=== PATIENT | male | born 1995 | race Caucasian/White ===

== ENCOUNTER 2021-11-12 04:03 | Emergency (ER) | payer OTHER ==
[2021-11-12 04:55] LABS: RAPID STREP SCREEN Negative (Negative)
[2021-11-12] MEDS ORDERED: SODIUM CHLORIDE 0.9% 1,000 ML IV STA (05:03)
[2021-11-12] MEDS ORDERED: KETOROLAC 15 MG/ML VIAL IVP STA (05:03)
[2021-11-12] MEDS ORDERED: DEXAMETHASONE 10 MG/ML VIAL IVP STA (05:04)
[2021-11-12 05:24] LABS: BASOPHILS % (AUTO) 0.3 %; HCT - HEMATOCRIT 38.8 % (42.0-52.0); HGB - HEMOGLOBIN 13.6 g/dL (14.0-18.0); LYMPHOCYTES # (AUTO) 0.4 10^3/uL (1.5-3.5); LYMPHOCYTES % (AUTO) 10.8 %; MEAN CORPUSCULAR HEMOGLOBIN 30.2 pg (27.0-31.0); MEAN CORPUSCULAR HGB CONC 35.1 g/dL (32.0-36.0); MEAN CORPUSCULAR VOLUME 86.2 fL (80.0-94.0); MEAN PLATELET VOLUME 10.1 fL (7.4-11.4); MONOCYTES # (AUTO) 0.3 10^3/uL (0.0-1.0); MONOCYTES % (AUTO) 7.5 %; NEUTROPHILS # (AUTO) 2.7 10^3/uL (1.5-6.6); NEUTROPHILS % (AUTO) 81.1 %; PLT - PLATELET COUNT 162 10^3/uL (130-450); RED CELL DISTRIBUTION WIDTH 11.9 % (12.0-15.0); WHITE BLOOD COUNT 3.3 x10^3/uL (4.8-10.8)
[2021-11-12 05:36] LABS: ALBUMIN 4.5 g/dL (3.2-5.5); ALBUMIN/GLOBULIN RATIO 1.5 (1.0-2.2); BILIRUBIN,TOTAL 1.5 mg/dL (0.2-1.0); CALCIUM 9.3 mg/dL (8.5-10.3); POTASSIUM 4.3 mmol/L (3.5-5.0); TOTAL PROTEIN 7.6 g/dL (6.7-8.2)
[2021-11-12 05:37] LABS: CORONAVIRUS 229E-RESP PCR NOT DETECTED; CORONAVIRUS HKU1-RESP PCR NOT DETECTED; CORONAVIRUS NL63-RESP PCR NOT DETECTED; CORONAVIRUS OC43-RESP PCR NOT DETECTED
[2021-11-12 05:38] LABS: B. PARAPERTUSSIS- RESP PCR PAN NOT DETECTED; B. PERTUSSIS- RESP PCR PANEL NOT DETECTED; C. PNEUMONIAE- RESP PCR PANEL NOT DETECTED; HUMAN METAPNEUMOVIRUS NOT DETECTED; INFLUENZA A- RESP PCR PANEL NOT DETECTED; INFLUENZA B - RESP PCR PANEL NOT DETECTED; M. PNEUMONIAE- RESP PCR PANEL NOT DETECTED; PARAINFLUENZA VIRUS 1 NOT DETECTED; PARAINFLUENZA VIRUS 2 NOT DETECTED; PARAINFLUENZA VIRUS 3 NOT DETECTED; PARAINFLUENZA VIRUS 4 NOT DETECTED; RHINOVIRUS/ENTEROVIRUS NOT DETECTED; RSV- RESP PCR PANEL NOT DETECTED; SARS-CoV-2 -RESP PCR PANEL DETECTED
--- NOTE | 2021-11-12 06:16 | ED Physician Documentation ---
PD HPI BACK PAIN - Stated complaint Stated Complaint: LOWER BACK PX/HIGH TEMP - Chief complaint Chief Complaint: General - History obtained from History obtained from: Patient - History of Present Illness Timing - onset: How many days ago (2) Timing - duration: Days (2) Timing - details: Gradual onset, Still present Location: Lower Quality: Pain, Spasm, Sharp, Similar to prior episodes Associated symptoms: Fever Improves with: Rest Worsened by: Movement, Lifting, Twisting Contributing factors: Other (working out at the GYM) Similar symptoms before: Diagnosis (lumbar strain) Recently seen: Not recently seen - Additional information Additional information: Previously well 26-year-old male has developed some back pain which he believes is related to working out at the gym. He has worsening of this back pain that he is usually expected and he is now developed a fever. He does have some nasal congestion and a slight cough associated with it. He is immunized against COVID. Review of Systems Constitutional: reports: Fever, Myalgias, Fatigue Ears: denies: Ear pain Nose: reports: Congestion Throat: reports: Sore throat Cardiac: denies: Chest pain / pressure, Palpitations Respiratory: reports: Cough. denies: Dyspnea GI: denies: Vomiting, Diarrhea : denies: Dysuria PD PAST MEDICAL HISTORY - Past Medical History Past Medical History: Yes Psych: Depression - Past Surgical History Past Surgical History: Yes HEENT: Tonsil/Adenoidectomy - Present Medications Home Medications: Ambulatory Orders Medication Instructions Recorded Confirmed No Known Home Medications 11/12/21 11/12/21 - Allergies Allergies/Adverse Reactions: Allergies Allergy/AdvReac Type Severity Reaction Status Date / Time No Known Drug Allergies Allergy Verified 11/12/21 04:16 - Social History Does the pt smoke?: No Smoking Status: Never smoker Does the pt drink ETOH?: Yes Does the pt have substance abuse?: No - Immunizations Immunizations are current?: Yes PD ED PE NORMAL - Vitals Vital signs reviewed: Yes (Hypertensive and febrile) - General General: Alert and oriented X 3, No acute distress, Well developed/nourished, Other (The patient is warm to the touch.) - HEENT HEENT: Atraumatic, PERRL, EOMI, Ears normal, Other (There is erythema to the posterior pharynx which is mild and present) - Neck Neck: Supple, no meningeal sign, No bony TTP - Cardiac Cardiac: RRR, No murmur - Respiratory Respiratory: No respiratory distress, Clear bilaterally - Abdomen Abdomen: Normal bowel sounds, Soft, Non tender, Non distended, No organomegaly - Back Back: No CVA TTP, Other (There is point tenderness to the paraspinous and spine of the lower lumbar area.) - Derm Derm: Normal color, Warm and dry, No rash - Extremities Extremities: No deformity, No edema - Neuro Neuro: Alert and oriented X 3, outside physical damage appraiser 2-12 intact, No motor deficit, No sensory def icit, Normal speech Eye Opening: Spontaneous Motor: Obeys Commands Verbal: Oriented GCS Score: 15 - Psych Psych: Normal mood, Normal affect Results - Vitals Vitals: Vital Signs - 24 hr 11/12/21 11/12/21 04:12 06:31 Temperature 39.1 C H 100.8 C H Heart Rate 99 58 L Respiratory 18 18 Rate Blood Pressure 114/83 H 120/64 O2 Saturation 99 99 Oxygen O2 Source Room air - Labs Labs: Laboratory Tests 11/12/21 11/12/21 11/12/21 04:25 04:25 04:35 WBC RBC Hgb Hct MCV MCH MCHC RDW Plt Count MPV Neut # (Auto) Lymph # (Auto) [place] # (Auto) Eos # (Auto) Baso # (Auto) Absolute Nucleated RBC Nucleated RBC % Sodium 137 Potassium 4.3 Chloride 102 Carbon Dioxide 24 Anion Gap 11.0 BUN 12 Creatinine 1.0 Estimated GFR (MDRD) 90 Glucose 103 H Lactic Acid Calcium 9.3 Total Bilirubin 1.5 H AST 61 H ALT 56 Alkaline Phosphatase 56 Total Protein 7.6 Albumin 4.5 Globulin 3.1 Albumin/Globulin Ratio 1.5 Lipase 32 Nasal Adenovirus (PCR) NOT DETECTED Nasal B. parapertussis DNA (PCR) NOT DETECTED Nasal Coronavir 229E PCR NOT DETECTED Nasal Coronavir HKU1 PCR NOT DETECTED Nasal Coronavir NL63 PCR NOT DETECTED Nasal Coronavir OC43 PCR NOT DETECTED Nasal Enterovir/Rhinovir PCR NOT DETECTED Nasal Influenza B PCR NOT DETECTED Nasal Influenza A PCR NOT DETECTED Nasal Parainfluen 1 PCR NOT DETECTED Nasal Parainfluen 2 PCR NOT DETECTED Nasal Parainfluen 3 PCR NOT DETECTED Nasal Parainfluen 4 PCR NOT DETECTED Nasal RSV (PCR) NOT DETECTED Nasal B.pertussis DNA PCR NOT DETECTED Nasal C.pneumoniae (PCR) NOT DETECTED [place] Human Metapneumo PCR NOT DETECTED Nasal M.pneumoniae (PCR) NOT DETECTED Nasal SARS-CoV-2 (PCR) DETECTED A Group A Strep Rapid Negative 11/12/21 11/12/21 05:15 05:15 WBC 3.3 L RBC 4.50 L Hgb 13.6 L Hct 38.8 L MCV 86.2 MCH 30.2 MCHC 35.1 RDW 11.9 L Plt Count 162 MPV 10.1 Neut # (Auto) 2.7 Lymph # (Auto) 0.4 L [place] # (Auto) 0.3 Eos # (Auto) 0.0 Baso # (Auto) 0.0 Absolute Nucleated RBC 0.00 Nucleated RBC % 0.0 Sodium Potassium Chloride Carbon Dioxide Anion Gap BUN Creatinine Estimated GFR (MDRD) Glucose Lactic Acid 0.8 Calcium Total Bilirubin AST ALT Alkaline Phosphatase Total Protein Albumin Globulin Albumin/Globulin Ratio Lipase Nasal Adenovirus (PCR) Nasal B. parapertussis DNA (PCR) Nasal Coronavir 229E PCR Nasal Coronavir HKU1 PCR Nasal Coronavir NL63 PCR Nasal Coronavir OC43 PCR Nasal Enterovir/Rhinovir PCR Nasal Influenza B PCR Nasal Influenza A PCR Nasal Parainfluen 1 PCR Nasal Parainfluen 2 PCR Nasal Parainfluen 3 PCR Nasal Parainfluen 4 PCR Nasal RSV (PCR) Nasal B.pertussis DNA PCR Nasal C.pneumoniae (PCR) [place] Human Metapneumo PCR Nasal M.pneumoniae (PCR) Nasal SARS-CoV-2 (PCR) Group A Strep Rapid - Rads (name of study) chest Radiology: Prelim report reviewed (Impression: 1. No acute cardiopulmonary process.), EMP read indepedently, See rad report PD MEDICAL DECISION MAKING - ED course Complexity details: reviewed results, re-evaluated patient, considered differential, d/w patient ED course: 26-year-old male with acute back pain has improvement in his back pain with the use of dexamethasone and Toradol. As he arrives to the emergency department he is noted to be febrile and he appears to have aches everywhere. The suspicion is for COVID. A COVID swab is positive. He was initially offered Paxlovid but this was not available as the pharmacy is not currently here. Departure - Departure Disposition: 01 Home, Self Care Clinical Impression: COVID Acute lumbar myofascial strain Qualifiers: Encounter type: initial encounter Qualified Code(s): S39.012A - Strain of muscle, fascia and tendon of lower back, initial encounter Condition: Stable Instructions: ED Sprain Strain Lumbar, COVID-19 [facility], Flu and Cold: Nutrition, Prevention and Treatment Tips Follow-Up: D[facility] Snellshirley Matt [Provider Group] Comments: Alex, today it looks like you have COVID. The most important thing with COVID is to be certain that you stay well-hydrated. Especially treat the fever with Tylenol and take additional fluids.Tylenol and Advil for the back pain and for the COVID.
[2021-11-12 06:33] VITALS: BP 120/64
--- NOTE | 2021-11-12 08:40 | XRAY Report ---
PROCEDURE: Chest 1 View X-Ray INDICATIONS: chest pain TECHNIQUE: One view of the chest was acquired. COMPARISON: None FINDINGS: Surgical changes and devices: None. Lungs and pleura: No pleural effusions or pneumothorax. Lungs are clear. Mediastinum: Mediastinal contours appear normal. Heart size is normal. Bones and chest wall: No suspicious bony lesions. Overlying soft tissues appear unremarkable. IMPRESSION: No acute pulmonary process. The above findings are concordant with preliminary report. Reviewed by: Kym Stallings MD on 11/12/2021 8:39 AM PDT Approved by: Kym Stallings MD on 11/12/2021 8:39 AM PDT Station ID: [id number]
== END 2021-11-12 06:31 | disposition home or self-care (01) ==
LOC: ED 04:03
DX: U07.1 COVID-19 (principal); S39.012A Strain of muscle, fascia and tendon of lower back, initial encounter; X58.XXXA Exposure to other specified factors, initial encounter; Y93.B9 Activity, other involving muscle strengthening exercises
CPT/HCPCS: 36415; 80053; 83605; 83690; 85025; 87040; 87070; 87077; 87150; 87181; 87430; 87633; 96374; 96375; 99282

== ENCOUNTER 2021-11-13 14:49 | Emergency (ER) | payer OTHER ==
[2021-11-13 14:56] VITALS: BP 115/69
--- NOTE | 2021-11-13 15:22 | ED Physician Documentation ---
History of Present Illness - Stated complaint Stated Complaint: ABNORMAL LABS - Chief complaint Chief Complaint: General - Additonal information Additional information: 26-year-old male was called to return to the ER for abnormal blood cultures. Seen by my colleague Dr. Kwong yesterday for acute low back pain and fevers. No falls or trauma. He was ultimately found to be COVID-19 positive. Due to the volume of the fever blood cultures were obtained and subsequently have grown coag negative staph species. This was in 1 of 2 sets obtained from the left arm During yesterday's work-up he was found to have white blood cell count of 3.3. His electrolytes were otherwise unremarkable. Chest x-ray without acute focal findings. Since being discharged yesterday he has taken Tylenol and ibuprofen and reports that his symptoms are markedly better. The back pain is resolving. He has no saddle anesthesia, bowel or bladder incontinence. No history of injection drug use. He is otherwise been healthy up to this point in his life. Review of Systems Constitutional: reports: Fever Eyes: reports: Loss of vision Nose: reports: Reviewed and negative Throat: reports: Reviewed and negative Cardiac: reports: Reviewed and negative Respiratory: reports: Reviewed and negative GI: reports: Reviewed and negative : reports: Reviewed and negative Skin: denies: Rash Musculoskeletal: reports: Back pain Neurologic: reports: Reviewed and negative Psychiatric: reports: Reviewed and negative Endocrine: reports: Reviewed and negative Immunocompromised: denies: Immunocompromised, HIV/AIDS, Asplenic, Chemotherapy, Transplant PD PAST MEDICAL HISTORY - Past Medical History Psych: Depression - Past Surgical History Past Surgical History: Yes HEENT: Tonsil/Adenoidectomy - Present Medications Home Medications: Ambulatory Orders Medication Instructions Recorded Confirmed No Known Home Medications 11/12/21 11/12/21 - Allergies Allergies/Adverse Reactions: Allergies Allergy/AdvReac Type Severity Reaction Status Date / Time No Known Drug Allergies Allergy Verified 11/12/21 04:16 - Social History Does the pt smoke?: No Smoking Status: Never smoker Does the pt drink ETOH?: Yes Does the pt have substance abuse?: No - Immunizations Immunizations are current?: Yes PD ED PE NORMAL - General General: Alert and oriented X 3, No acute distress, Well developed/nourished - HEENT HEENT: Atraumatic, Pharynx benign - Neck Neck: Supple, no meningeal sign, No JVD - Cardiac Cardiac: RRR, No murmur - Respiratory Respiratory: No respiratory distress - Abdomen Abdomen: Normal bowel sounds, Soft - Back Back: No CVA TTP, No spinal TTP, Other (no low back or spinous process pain elicited) - Derm Derm: Normal color, Warm and dry - Extremities Extremities: No deformity, No tenderness to palpate, Normal ROM s pain - Neuro Neuro: Alert and oriented X 3, recovery agent 2-12 intact Eye Opening: Spontaneous Motor: Obeys Commands Verbal: Oriented GCS Score: 15 - Psych Psych: Normal mood Results - Vitals Vitals: Vital Signs - 24 hr 11/13/21 14:53 Temperature 36.6 C Heart Rate 60 Respiratory 16 Rate Blood Pressure 115/69 O2 Saturation 99 Oxygen O2 Source Room air PD MEDICAL DECISION MAKING - ED course Complexity details: reviewed old records, reviewed results, re-evaluated patient, considered differential, d/w patient ED course: 26-year-old male was called to return to the ER for evaluation of positive blood cultures obtained yesterday. He was seen by my colleague for fever and acute low back pain. Ultimately was found to be COVID-19 positive. One of the 2 sets resulted positive for coag negative staph. The set was taken from the left arm. Since being discharged yesterday he reports marked improvement in his symptoms. No further fevers. His back pain is nearly fully resolved. He is having no chest pain, cough shortness of air or abdominal pain or urinary symptoms. His clinical exam and vital signs today are unremarkable The cultures from yesterday grew a coag negative staph, this likely represents a contamination. Given his improvement in symptoms we will simply repeat the blood cultures today. Patient will be discharged home. If the cultures obtained today are positive then he will certainly need to return for repeat evaluation and at that time consideration of antibiotics for possible bacteremia though at this time I suspect yesterday's cultures are simply contaminant. Departure - Departure Disposition: 01 Home, Self Care Clinical Impression: Abnormal blood finding Condition: Stable Record reviewed to determine appropriate education?: Yes Comments: Alex You were asked today to return to the emergency department for evaluation of abnormal blood cultures. When you were seen yesterday for fever and low back pain you were found to have COVID-19 infection. However, one of the two sets of blood cultures, the one taken from your left arm, grew coag negative staph aureus. When this occurs, most often it is a contamination. However it is always advised to have your blood cultures repeated, which we have done today. If your cultures today are positive then you will be notified and you will need to return to the emergency department for likely hospitalization and further evaluation. I do recommend that you continue to stay well-hydrated, continue to take the Tylenol or ibuprofen. If at any point you find that your symptoms worsen, you have a return of fevers, any difficult or labored breathing then you are to return immediately to the emergency department.
== END 2021-11-13 15:47 | disposition home or self-care (01) ==
LOC: ED 14:49
DX: R89.5 Abnormal microbiological findings in specimens from other organs, systems and tissues (principal); U07.1 COVID-19
CPT/HCPCS: 87040; 99281; 99283

== ENCOUNTER 2022-06-07 18:15 | Emergency (ER) | payer OTHER ==
[2022-06-07 18:47] VITALS: BP 139/105
--- NOTE | 2022-06-07 19:12 | XRAY Report ---
PROCEDURE: Ankle 3 View LT INDICATIONS: Trauma TECHNIQUE: 3 views of the ankle were acquired. COMPARISON: None FINDINGS: Bones: Moderately displaced oblique fracture of the distal fibula is present. There is widening of th e medial ankle mortise. No suspicious bony lesions. Soft tissues: No tibiotalar joint effusion. Achilles tendon appears normal. IMPRESSION: 1. Distal fibular fracture. 2. Deltoid ligament tear. Reviewed by: Bernie العراقي MD on 06/07/2022 7:10 PM [facility] Approved by: Bernie العراقي MD on 06/07/2022 7:10 PM [facility] Station ID: [id number]
--- NOTE | 2022-06-07 19:21 | ED Physician Documentation ---
PD HPI LOWER EXT INJURY - Stated complaint Stated Complaint: FALL,L ANKLE PX - Chief complaint Chief Complaint: Trauma Ext - History obtained from History obtained from: Patient - History of Present Illness PD HPI LOW EXT INJURY LOCATION: Left (26-year-old gentleman who is active duty in the [employer] had a slip and fall on the ice today and injured his left ankle. No other injuries. Pain is moderate. Declines pain medication.) Review of Systems Constitutional: reports: Reviewed and negative Throat: reports: Reviewed and negative Cardiac: reports: Reviewed and negative PD PAST MEDICAL HISTORY - Past Medical History Psych: Depression - Past Surgical History Past Surgical History: Yes HEENT: Tonsil/Adenoidectomy - Present Medications Home Medications: Ambulatory Orders Medication Instructions Recorded Confirmed No Known Home Medications 11/12/21 11/12/21 - Allergies Allergies/Adverse Reactions: Allergies Allergy/AdvReac Type Severity Reaction Status Date / Time No Known Drug Allergies Allergy Verified 06/07/22 18:47 - Social History Does the pt smoke?: No Smoking Status: Never smoker Does the pt drink ETOH?: Yes Does the pt have substance abuse?: No - Immunizations Immunizations are current?: Yes PD ED PE NORMAL - Vitals Vital signs reviewed: Yes - General General: Alert and oriented X 3, No acute distress - Derm Derm: Normal color, Warm and dry - Extremities Extremities: Other (Tender over both malleoli of the left ankle, no deformity. No tenderness of the foot or proximal fibula. Normal neurovascular status in the left foot.) - Neuro Neuro: Alert and oriented X 3, Normal speech Results - Vitals Vitals: Vital Signs - 24 hr 06/07/22 18:44 Temperature 36.5 C Heart Rate 66 Respiratory 16 Rate Blood Pressure 139/105 H O2 Saturation 97 Oxygen O2 Source Room air - Rads (name of study) Three-view x-ray of the left ankle shows a distal fibular fracture with deltoid ligament tear Radiology: Final report received, EMP read indepedently Procedures - Splint (location) - Minor Left leg Splint applied by: Tech Type of splint: Fiberglass, Short leg, Posterior, Stirrup Other: Patient tolerated well, No complications, Neurovascular intact Departure - Departure Disposition: 01 Home, Self Care Clinical Impression: Fracture of distal end of fibula Qualifiers: Encounter type: initial encounter Fracture type: closed Fracture morphology: other fracture Laterality: left Qualified Code(s): S82.832A - Other fracture of upper and lower end of left fibula, initial encounter for closed fracture Condition: Good Record reviewed to determine appropriate education?: Yes Instructions: ED Fx Lower Ext Comments: You have a distal fibular fracture of the left ankle, you need to follow-up with an orthopedist, call your flight surgeon tomorrow for a referral. Keep the splint on and dry until then, do not remove it. Do not walk or bear weight on the left leg. Tylenol and/or ibuprofen per package instructions for pain. Elevate is much as possible. Forms: Activity restrictions
== END 2022-06-07 19:48 | disposition home or self-care (01) ==
LOC: ED 18:15
DX: S82.832A Other fracture of upper and lower end of left fibula, initial encounter for closed fracture (principal); W00.0XXA Fall on same level due to ice and snow, initial encounter
CPT/HCPCS: 29515; 99283